=== PATIENT | male | born 1995 | race Caucasian/White ===

== ENCOUNTER 2018-10-23 03:04 | Emergency (ER) | payer OTHER ==
[2018-10-23 03:20] VITALS: BP 138/77
[2018-10-23] MEDS ORDERED: LIDOCAINE 1%/EPINEPHRINE INJ 20 ML VIAL INJ ONE (04:08)
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
== END 2018-10-23 05:32 | disposition home or self-care (01) ==
LOC: ER 03:04
PROC: 0HQ1XZZ Repair Face Skin, External Approach (ICD-10-PCS; principal; 2018-10-23)
DX: S01.81XA Laceration without foreign body of other part of head, initial encounter (principal); S40.212A Abrasion of left shoulder, initial encounter; S50.312A Abrasion of left elbow, initial encounter; S60.812A Abrasion of left wrist, initial encounter; S40.812A Abrasion of left upper arm, initial encounter; S80.212A Abrasion, left knee, initial encounter; S80.211A Abrasion, right knee, initial encounter; S90.512A Abrasion, left ankle, initial encounter; S90.511A Abrasion, right ankle, initial encounter; V03.90XA Pedestrian on foot injured in collision with car, pick-up truck or van, unspecified whether traffic or nontraffic accident, initial encounter
CPT/HCPCS: 99282; 12013; J3490